=== PATIENT | male | born 1985 | race Caucasian/White ===

== ENCOUNTER 2023-10-31 13:59 | Observation (INO) | payer OTHER, SELFPAY ==
[2023-10-31 13:59] VITALS: BP 151/90; PULSE 95; RESP 19; TEMP 36.8; O2SAT 98; BMI 22.8
--- NOTE | 2023-10-31 14:19 | PC.NURSE ---
Dr. Parra at BS for pt eval
--- NOTE | 2023-10-31 14:26 | CT_ITS ---
FINAL REPORT TECHNIQUE: After the administration of oral and intravenous contrast, axial images were obtained through the abdomen and pelvis by computed tomography. The study was performed with techniques to keep radiation dose as low as reasonably achievable, (ALARA). Individual dose reduction techniques using automated exposure control or adjustment of mA and/or kV according to the patient's size were employed. CLINICAL HISTORY: Suprapubic pain, guarding FINDINGS: Abdomen: The lung bases are clear. There is mild fatty infiltration of the liver. The gallbladder is present. The spleen, pancreas, adrenals and kidneys appear unremarkable. The aorta is normal in caliber. There is no free fluid or adenopathy. Pelvis: There is extensive inflammatory reaction surrounding the proximal sigmoid colon with inflammatory reaction and a small amount of fluid. There may be a tiny amount of extraluminal air. Findings are best seen on images 111-115 of series 3 and are probably related to acute diverticulitis. No definite abscess is seen. The appendix is unremarkable. The urinary bladder is unremarkable. There is no free fluid or adenopathy. IMPRESSION: Acute diverticulitis. Reviewed, Interpreted and Dictated by Abner Larson MD Transcribed by Judy Vazquez Authenticated and [facility]
--- NOTE | 2023-10-31 14:27 | ED_ITS ---
Discharge Plan Disposition Patient Disposition: Admitted Chief Complaint: Abdominal Pain Clinical Impressions Clinical Impression: Abdominal pain, Diverticulitis of sigmoid colon Discharge ED Provider: Piyush Boothe General Adult HPI <Messi Parra MD - Last Filed: 10/31/23 15:45> General Chief complaint: Abdominal Pain Stated complaint: lower abdomen pain Time Seen by Provider: 10/31/23 14:17 Mode of Arrival: Ambulatory Source of Information: Patient Limitations: No Limitations Description of Symptoms (Recalled from ER Triage Doc. by RN): pt presents to ED with c/o lower abdominal pain. pt reports pain located all over lower abdomen with radiation into his back. pain ongoing for the past week, pt states pain become worse on friday. History of Present Illness HPI narrative: Renny Ragland is a 38M with no significant past medical history presenting to the emergency department for complaints of 1.5 weeks of suprapubic, sharp abdominal pain that intermittently radiates to both of his testicles. He states that he works out in the heat a lot and has been trying to stay hydrated but the pain has persisted. He reports no burning with urination but states that it is difficult to oftentimes start a urine stream and sometimes difficult to initiate a bowel movement due to the suprapubic pain. He reports that he has daily regular bowel movements without blood or diarrhea. He denies any alcohol use. He denies any scrotal swelling or current testicular pain. He reports he had a fever earlier last week with a max temp of 100.4 but it resolved on its own. He denies any trauma. He states that on Friday of this past week, he was stretching while at a restaurant and felt the pain in the middle of his back. He states that the pain in his abdomen has gotten worse since then. He denies any previous abdominal surgeries. Related Data Allergies Allergy/AdvReac Type Severity Reaction Status Date / Time No Known Allergies Allergy Verified 10/31/23 17:31 PFSH <Messi Parra MD - Last Filed: 10/31/23 15:45> [facility] Disclaimer: The information contained in this section may have been updated after the patient was seen, as this information can be updated by other users. Social History Smoking Status: Current every day smoker alcohol intake: never current occupational status: employed Travel in the last 8 weeks: None <Messi Parra MD - Last Filed: 10/31/23 15:45> ROS Obtained: Yes Systems reviewed as appropriate & no additional complaints except as documented Physical Exam <Messi Parra MD - Last Filed: 10/31/23 15:45> General General appearance: alert, in no apparent distress and obese Head Head exam: atraumatic Eye Eye exam: Present normal appearance ENT ENT exam: Present normal external ear exam Neck Neck exam: Present full ROM Chest Chest inspection: Present symmetric chest wall rise Respiratory Respiratory exam: Present normal lung sounds bilaterally; Absent respiratory distress Cardiovascular Cardiovascular exam: Present regular rate and normal rhythm Abdominal Exam Abdominal exam: Present soft, tenderness (suprapubic, LLQ, LUQ) and guarding (suprapubic, LLQ); Absent distention, rebound, rigidity or Menchaca's sign Abdominal tenderness: Present LUQ, LLQ and suprapubic exam: Present normal inspection, deferred and normal testicular lie; Absent testicular tenderness, urethral discharge or scrotal swelling Extremities Exam Extremities exam: Present normal inspection Back Exam Back exam: Present normal inspection Neurological Exam Neurological exam: Present alert and oriented X3 Psychiatric Psychiatric exam: Present normal affect Skin Skin exam: Present warm and dry Medical Decision Making <Messi Parra MD - Last Filed: 10/31/23 15:45> Medical Records Medical records reviewed: Yes I reviewed the patient's medical records. [place] Inquiry Pt receiving controlled substance: No Vital Signs: 10/31/23 13:59 10/31/23 15:00 10/31/23 16:00 Temperature 98.2 F Temperature Source Oral Pulse Rate 69 66 Pulse Rate [Left Radial] 95 H Respiratory Rate 19 Blood Pressure 139/89 133/90 Blood Pressure [Right Arm] 151/90 H Blood Pressure Mean [Right Arm] 110 02 Sat by Pulse Oximetry 98 98 96 Oxygen Delivery Method Room Air Room Air Room Air Lab Data Lab Results 10/31/23 13:44: WBC 8.9, RBC 5.36, Hgb 15.9, Hct 48.7, MCV 90.8, MCH 29.6, MCHC 32.6, RDW 13.6, Plt Count 250, MPV 7.6, Neut % (Auto) 69.1, Lymph % (Auto) 20.2, [place] % (Auto) 8.7, Eos % (Auto) 1.2, Baso % (Auto) 0.7, Neut # (Auto) 6.2, Lymph # (Auto) 1.8, [place] # (Auto) 0.8, Eos # (Auto) 0.1, Baso # (Auto) 0.1, Sodium 141, Potassium 3.9, Chloride 107, Carbon Dioxide 27, Anion Gap 10.9, BUN 8 L, Creatinine 0.80, Estimated Creat Clear 142, Estimated GFR 108, Est GFR ( Amer) 130, Glucose 94, Calcium 9.4, Total Bilirubin 0.6, AST 33, ALT 36, Alkaline Phosphatase 86, Total Protein 7.9, Albumin 4.1, Globulin 3.8 H, Albumin/Globulin Ratio 1.1, Lipase 43 10/31/23 14:05: Urine Color Yellow, Urine Appearance Clear, Urine pH 7.0, Ur Specific [place] 1.015, Urine Protein Negative, Urine Glucose (UA) Negative, Urine Ketones Negative, Urine Blood Negative, Urine Nitrate Negative, Urine Bilirubin Negative, Urine Urobilinogen 1.0, Ur Leukocyte Esterase Negative, Urine RBC Occasional, Urine WBC Occasional, Urine Bacteria 1+, Urine Mucus 3+ 10/31/23 13:44 10/31/23 13:44 Orders (Tests/Meds): ED MEDICATIONS Generic Name Dose Route Start Last Admin Trade Name Freq PRN Reason Stop Dose Admin Hydromorphone HCl 1 mg 10/31/23 17:32 Hydromorphone 2mg/Ml Syringe IV 11/30/23 17:31 Q4HP PRN Severe Pain (7-10) Ampicillin Sodium/Sulbactam 100 mls @ 200 mls/hr 10/31/23 17:29 Sodium 3 gm/ Sodium Chloride IV 10/31/23 17:30 ONCE ONE Metronidazole 500 mg in 100 mls @ 100 mls/hr 10/31/23 17:29 Flagyl 500mg/100ml Ivpb IV 10/31/23 18:28 ONCE ONE Lactated Ringer's 1,000 mls @ 100 mls/hr 10/31/23 17:45 Lactated Ringer's 1000 Ml Bag IV 11/30/23 17:[address] Metronidazole 500 mg in 100 mls @ 100 mls/hr 11/01/23 01:30 Flagyl 500mg/100ml Ivpb IV 11/11/23 01:[address] Ampicillin Sodium/Sulbactam 100 mls @ 200 mls/hr 10/31/23 23:45 Sodium 3 gm/ Sodium Chloride IV 11/10/23 23:[address] Ondansetron HCl 4 mg 10/31/23 17:32 Ondansetron 4mg/2ml Vial IV 11/30/23 17:31 Q8HP PRN Nausea Sodium Chloride 10 ml 10/31/23 14:48 10/31/23 14:49 Sodium Chloride 0.9% 10ml Syr (Rad Only) IV 11/30/23 14:47 10 ml NEEDED PRN Administration Maintain IV Site Discontinued Medications Generic Name Dose Route Start Last Admin Trade Name Freq PRN Reason Stop Dose Admin Iopamidol 75 ml 10/31/23 14:48 10/31/23 14:49 Iopamidol-370 (76%);100ml Bottle IV 10/31/23 14:49 75 ml ONCE ONE Administration ORDERS Category Date Time Status CT abdomen pelvis w con Stat Cat Scan 10/31/23 14:26 Completed Surgery Consult (on-call) [Consult to On-Call Gen'l Cons 10/31/23 17:32 Ordered Surgeon] [CONS] Routine CBC w/Auto Diff [Complete Blood Count Auto Diff] Stat Lab 10/31/23 13:44 Completed CMP [Comprehensive Metabolic Panel] Stat Lab 10/31/23 13:44 Completed Complete Blood Count Auto Diff AMLAB Lab 11/01/23 06:00 Ordered Comprehensive Metabolic Panel AMLAB Lab 11/01/23 06:00 Ordered Lipase Stat Lab 10/31/23 13:44 Completed Magnesium AMLAB Lab 11/01/23 06:00 Ordered Urinalysis and Microscopic Stat Lab 10/31/23 14:05 Completed Blood Culture Stat Micro 10/31/23 17:31 Ordered Medical Decision Narrative: Bernardino Ragland is a 38M with no significant past medical history who presents to the emergency department for complaints of 1.5 weeks of suprapubic abdominal pain that radiates to his testicles intermittently. He denies any dysuria but reports difficulty starting urinary stream at times due to the suprapubic pain. He reports regular bowel movements without constipation, melena or hematochezia. Patient's exam demonstrated suprapubic tenderness, left lower quadrant tenderness, left upper quadrant tenderness with guarding in these areas. Testicular exam revealed normal-appearing testicles bilaterally, no tenderness to the testicles, no scrotal swelling. Differential diagnosis includes: Appendicitis, diverticulitis, UTI, constipation, epididymitis, orchitis, small bowel obstruction, among others Workup in the emergency department included: CBC, CMP, lipase, urinalysis, CT abdomen pelvis with IV contrast. Patient was offered pain medication, however he stated that he did not want any at this time. Lab work revealed no leukocytosis, CMP unremarkable and nonactionable, lipase normal at 43, urinalysis without evidence of infection. CT imaging pending at this time. At this time, the patient's care was transferred to the oncoming physician, Dr. Boothe, pending completion of his CT scan. Patient remained hemodynamically stable throughout his entire ED visit and was appropriate for transfer of care. <Piyush Boothe MD - Last Filed: 10/31/23 17:40> Vital Signs: 10/31/23 13:59 10/31/23 15:00 10/31/23 16:00 Temperature 98.2 F Temperature Source Oral Pulse Rate 69 66 Pulse Rate [Left Radial] 95 H Respiratory Rate 19 Blood Pressure 139/89 133/90 Blood Pressure [Right Arm] 151/90 H Blood Pressure Mean [Right Arm] 110 02 Sat by Pulse Oximetry 98 98 96 Oxygen Delivery Method Room Air Room Air Room Air Lab Data Lab Results 10/31/23 13:44: WBC 8.9, RBC 5.36, Hgb 15.9, Hct 48.7, MCV 90.8, MCH 29.6, MCHC 32.6, RDW 13.6, Plt Count 250, MPV 7.6, Neut % (Auto) 69.1, Lymph % (Auto) 20.2, [place] % (Auto) 8.7, Eos % (Auto) 1.2, Baso % (Auto) 0.7, Neut # (Auto) 6.2, Lymph # (Auto) 1.8, [place] # (Auto) 0.8, Eos # (Auto) 0.1, Baso # (Auto) 0.1, Sodium 141, Potassium 3.9, Chloride 107, Carbon Dioxide 27, Anion Gap 10.9, BUN 8 L, Creatinine 0.80, Estimated Creat Clear 142, Estimated GFR 108, Est GFR ( Amer) 130, Glucose 94, Calcium 9.4, Total Bilirubin 0.6, AST 33, ALT 36, Alkaline Phosphatase 86, Total Protein 7.9, Albumin 4.1, Globulin 3.8 H, Albumin/Globulin Ratio 1.1, Lipase 43 10/31/23 14:05: Urine Color Yellow, Urine Appearance Clear, Urine pH 7.0, Ur Specific [place] 1.015, Urine Protein Negative, Urine Glucose (UA) Negative, Urine Ketones Negative, Urine Blood Negative, Urine Nitrate Negative, Urine Bilirubin Negative, Urine Urobilinogen 1.0, Ur Leukocyte Esterase Negative, Urine RBC Occasional, Urine WBC Occasional, Urine Bacteria 1+, Urine Mucus 3+ Orders (Tests/Meds): ED MEDICATIONS Generic Name Dose Route Start Last Admin Trade Name Freq PRN Reason Stop Dose Admin Hydromorphone HCl 1 mg 10/31/23 17:32 Hydromorphone 2mg/Ml Syringe IV 11/30/23 17:31 Q4HP PRN Severe Pain (7-10) Ampicillin Sodium/Sulbactam 100 mls @ 200 mls/hr 10/31/23 17:29 Sodium 3 gm/ Sodium Chloride IV 10/31/23 17:30 ONCE ONE Metronidazole 500 mg in 100 mls @ 100 mls/hr 10/31/23 17:29 Flagyl 500mg/100ml Ivpb IV 10/31/23 18:28 ONCE ONE Lactated Ringer's 1,000 mls @ 100 mls/hr 10/31/23 17:45 Lactated Ringer's 1000 Ml Bag IV 11/30/23 17:[address] Metronidazole 500 mg in 100 mls @ 100 mls/hr 11/01/23 01:30 Flagyl 500mg/100ml Ivpb IV 11/11/23 01:[address] Ampicillin Sodium/Sulbactam 100 mls @ 200 mls/hr 10/31/23 23:45 Sodium 3 gm/ Sodium Chloride IV 11/10/23 23:[address] Ondansetron HCl 4 mg 10/31/23 17:32 Ondansetron 4mg/2ml Vial IV 11/30/23 17:31 Q8HP PRN Nausea Sodium Chloride 10 ml 10/31/23 14:48 10/31/23 14:49 Sodium Chloride 0.9% 10ml Syr (Rad Only) IV 11/30/23 14:47 10 ml NEEDED PRN Administration Maintain IV Site Discontinued Medications Generic Name Dose Route Start Last Admin Trade Name David PRN Reason Stop Dose Admin Iopamidol 75 ml 10/31/23 14:48 10/31/23 14:49 Iopamidol-370 (76%);100ml Bottle IV 10/31/23 14:49 75 ml ONCE ONE Administration ORDERS Category Date Time Status CT abdomen pelvis w con Stat Cat Scan 10/31/23 14:26 Completed Surgery Consult (on-call) [Consult to On-Call Gen'l Cons 10/31/23 17:32 Ordered Surgeon] [CONS] Routine CBC w/Auto Diff [Complete Blood Count Auto Diff] Stat Lab 10/31/23 13:44 Completed CMP [Comprehensive Metabolic Panel] Stat Lab 10/31/23 13:44 Completed Complete Blood Count Auto Diff AMLAB Lab 11/01/23 06:00 Ordered Comprehensive Metabolic Panel AMLAB Lab 11/01/23 06:00 Ordered Lipase Stat Lab 10/31/23 13:44 Completed Magnesium AMLAB Lab 11/01/23 06:00 Ordered Urinalysis and Microscopic Stat Lab 10/31/23 14:05 Completed Blood Culture Stat Micro 10/31/23 17:31 Ordered Medical Decision Narrative: Bernardino Ragland is a 38M with no significant past medical history who presents to the emergency department for complaints of 1.5 weeks of suprapubic abdominal pain that radiates to his testicles intermittently. He denies any dysuria but reports difficulty starting urinary stream at times due to the suprapubic pain. He reports regular bowel movements without constipation, melena or hematochezia. Patient's exam demonstrated suprapubic tenderness, left lower quadrant tenderness, left upper quadrant tenderness with guarding in these areas. Testicular exam revealed normal-appearing testicles bilaterally, no tenderness to the testicles, no scrotal swelling. Differential diagnosis includes: Appendicitis, diverticulitis, UTI, constipation, epididymitis, orchitis, small bowel obstruction, among others Workup in the emergency department included: CBC, CMP, lipase, urinalysis, CT abdomen pelvis with IV contrast. Patient was offered pain medication, however he stated that he did not want any at this time. Lab work revealed no leukocytosis, CMP unremarkable and nonactionable, lipase normal at 43, urinalysis without evidence of infection. CT imaging pending at this time. At this time, the patient's care was transferred to the oncoming physician, Dr. Boothe, pending completion of his CT scan. Patient remained hemodynamically stable throughout his entire ED visit and was appropriate for transfer of care. Shyann: I assumed primary responsibility for this patient after signout from previous physician. On my independent evaluation of patient, he still guarding, any significant abdominal pain. No overlying skin changes. Does appear peritonitic. It is localized peritonitis in left lower quadrant. Independent to rotation of workup demonstrates nonactionable CBC or chemistry. Sodium normal. Independent rotation of imaging demonstrates what appears to be complicated sigmoid diverticulitis without obvious perforation. Radiology read as questionable extraluminal gas, I disagree. I called the surgeon on-call, Dr. Downing. He recommended admission with antibiotics, serial abdominal exams and nonsurgical management at this time. I feel this is appropriate. I contacted hospitalist and case was discussed at length, agreeable to admission. Because patient high risk for clinical decompensation, deemed appropriate for inpatient admission. Results were relayed to patient who voiced understanding and patient was agreeable to inpatient admission and management. Patient was admitted to the hospital for further definitive management. Critical Care <Messi Parra MD - Last Filed: 10/31/23 15:45> Critical Care Time Critical Care Time: No <Piyush Boothe MD - Last Filed: 10/31/23 17:40> Critical Care Time Critical Care Time: Yes (gi) Attestation: On 10/31/23, the high probability of a clinically significant, sudden or life threatening deterioration of the following system(s) required my full and direct attention, intervention and personal management. The time I documented below is in addition to time spent performing reported procedures but includes the following listed in this critical care notation. Total Time Total Critical Care Time: 35
[2023-10-31 14:31] LABS: Microscopic, Urine URINE MICROSCOPIC (MICROSCOPIC)
[2023-10-31 14:34] LABS: Appearance,Urine CLEAR (Clear); Bilirubin,Urine Negative (Negative); Blood, Urine Negative (Negative); Color,Urine YELLOW (Yellow); Glucose,Urine (UA) Negative (Negative); Ketones,Urine Negative (Negative); Leukocyte Esterase,Urine Negative (Negative); Nitrate,Urine Negative (Negative); Protein,Urine Negative (Negative); Specific Gravity, Urine 1.015 (1.005-1.030)
[2023-10-31 14:38] LABS: Alanine Aminotransferase 36 U/L (12-78); Albumin Level 4.1 g/dl (3.5-5.0); Albumin/Globulin Ratio 1.1 (1.1-1.8); Alkaline Phosphatase 86 U/L (38-126); Anion Gap 10.9 mEq/L (5-15); Aspartate Amino Transferase 33 U/L (17-59); Bilirubin,Total 0.6 mg/dl (0.2-1.3); Blood Urea Nitrogen 8 mg/dl (9-20); Calcium 9.4 mg/dl (8.4-10.2); Carbon Dioxide 27 mmol/L (22.0-30.0); Chloride 107 mmol/L (98-107); Creatinine Clearance Estimated 142 mL/min (50-200); Estimated Glomerular Filt Rate 108 ml/min (>60); GFR (African American) 130 ML/MIN (>60); Globulin 3.8 g/dL (1.3-3.2); Glucose 94 mg/dl (74-100); Lipase 43 U/L (23-300); Potassium 3.9 mmoL/L (3.5-5.1); Sodium 141 mmol/L (136-145); Total Protein,Serum 7.9 g/dl (6.3-8.2)
[2023-10-31 14:41] LABS: Basophils # 0.1 K/mm3 (0-0.2); Basophils % 0.7 % (0.1-2.0); Eosinophils # 0.1 K/mm3 (0.0-0.4); Eosinophils % 1.2 % (0.1-12.0); Hematocrit 48.7 % (42.0-52.0); Hemoglobin 15.9 g/dL (14.1-18.0); Lymphocytes # 1.8 K/mm3 (0.7-4.5); Lymphocytes % 20.2 % (10-50); Mean Corpuscular HGB Conc 32.6 g/dL (31.8-35.4); Mean Corpuscular Hemoglobin 29.6 pg (27.0-31.2); Mean Corpuscular Volume 90.8 fl (80-94); Mean Platelet Volume 7.6 fl (7.4-10.4); Monocytes # 0.8 K/mm3 (0.1-1.0); Monocytes % 8.7 % (1.7-9.3); Neutrophils # 6.2 K/mm3 (1.8-7.8); Neutrophils % 69.1 % (37.0-80.0); Platelet Count 250 K/mm3 (142-424); Red Blood Count 5.36 M/mm3 (4.60-6.20); Red Cell Distribution Width 13.6 % (11.5-17.5); White Blood Count 8.9 K/mm3 (4.8-10.8)
--- NOTE | 2023-10-31 14:44 | PC.NURSE ---
Pt ambulatory to RAD
[2023-10-31] MEDS: IOPAMIDOL-370 (76%);100ML BOTTLE 75 ML IV (14:49)
[2023-10-31] MEDS: SODIUM CHLORIDE 0.9% 10ML SYR (RAD ONLY) 10 ML IV (14:49)
[2023-10-31 14:51] LABS: Bacteria,Urine 1+ /lpf; Mucus,Urine 3+ /lpf; RBC,Urine Occasional #/hpf (0-3); WBC,Urine Occasional #/hpf (0-3)
[2023-10-31 15:00] VITALS: BP 139/89; PULSE 69; O2SAT 98
[2023-10-31 16:00] VITALS: BP 133/90; PULSE 66; O2SAT 96
--- NOTE | 2023-10-31 17:35 | EXP.HP ---
History of Present Illness *Admission Date: 10/31/23 *Reason for visit:: abdominal pain *History of present illness: Mr. Ragland is a 38-year-old male with no significant past medical history. On no home medications. Presented to the ER with 1 weeks of abdominal pain, fecal urgency, urinary urgency. Reports that he had a fever to 100.4 earlier this week starting on Friday into Friday. Denies nausea. States that when he would eat however he would have to go straight to the bathroom and it was rabbit pellets. Denies any blood in his stool. States he was also having mucus discharge. Normal bowel movements are Emery stool scale 4-6 2-3 times a day. Has not had anything to eat for the past 24 hours. On evaluation in the ER, found to have normal white count 8.9. CT of abdomen remarkable for suspected perforated sigmoid diverticulitis however with significant stranding around colon. Surgery was consulted, recommended admission with antibiotics. Medicine consulted for admission and further management. On arrival to the floor, patient's is with him at bedside. Appears relatively comfortable in bed. Stable on room air. Alert and oriented x 4. [facility] Disclaimer: The information contained in this section may have been updated after the patient was seen, as this information can be updated by other users. Social History (Updated 10/31/23 @ 18:15 by Giselle Gan RN) Smoking Status: Current every day smoker alcohol intake: never current occupational status: employed Travel in the last 8 weeks: None Review of Systems Review of Systems Review of systems (narrative): 14 point review of systems performed, pertinent positives and negatives as per HPI Meds Home Medications and Allergies Home Medications ?Medication ?Instructions ?Recorded ?Confirmed ?Type multivitamin 1 cap PO DAILY 10/31/23 10/31/23 History New Prescriptions to Start Prescriptions: Allergies Allergy/AdvReac Type Severity Reaction Status Date / Time No Known Allergies Allergy Verified 10/31/23 17:31 Exam Data for Last 24 hours Vital signs and Labs for Last 24 Hours: Temp Pulse Resp BP Pulse Ox O2 Del Method 98.2 F 66 19 133/90 96 Room Air 10/31/23 13:59 10/31/23 16:00 10/31/23 13:59 10/31/23 16:00 10/31/23 16:00 10/31/23 16:00 Laboratory Results - last 24 hr 10/31/23 13:44: WBC 8.9, RBC 5.36, Hgb 15.9, Hct 48.7, MCV 90.8, MCH 29.6, MCHC 32.6, RDW 13.6, Plt Count 250, MPV 7.6, Neut % (Auto) 69.1, Lymph % (Auto) 20.2, [place] % (Auto) 8.7, Eos % (Auto) 1.2, Baso % (Auto) 0.7, Neut # (Auto) 6.2, Lymph # (Auto) 1.8, [place] # (Auto) 0.8, Eos # (Auto) 0.1, Baso # (Auto) 0.1, Sodium 141, Potassium 3.9, Chloride 107, Carbon Dioxide 27, Anion Gap 10.9, BUN 8 L, Creatinine 0.80, Estimated Creat Clear 142, Estimated GFR 108, Est GFR ( Amer) 130, Glucose 94, Calcium 9.4, Total Bilirubin 0.6, AST 33, ALT 36, Alkaline Phosphatase 86, Total Protein 7.9, Albumin 4.1, Globulin 3.8 H, Albumin/Globulin Ratio 1.1, Lipase 43 10/31/23 14:05: Urine Color Yellow, Urine Appearance Clear, Urine pH 7.0, Ur Specific [place] 1.015, Urine Protein Negative, Urine Glucose (UA) Negative, Urine Ketones Negative, Urine Blood Negative, Urine Nitrate Negative, Urine Bilirubin Negative, Urine Urobilinogen 1.0, Ur Leukocyte Esterase Negative, Urine RBC Occasional, Urine WBC Occasional, Urine Bacteria 1+, Urine Mucus 3+ I & O for Last 24 hours: Intake & Output 10/28/23 10/29/23 10/30/23 10/31/23 23:59 23:59 23:59 23:59 Weight 80.739 kg Constitutional Constitutional: mild distress, average body habitus and cooperative *Routine HEENT Exam Head: Present normocephalic Eye: Present EOMI and PERRL ENT: Present mucous membranes moist *Routine Neck Exam Neck: Present supple; Absent lymphadenopathy *Routine Respiratory Exam Respiratory: Present CTA bilaterally; Absent rhonchi, wheezes or crackles *Routine Cardiovascular Exam Cardiovascular: Present RRR *Routine Abdominal Exam Abdominal: Present soft, normoactive bowel sounds and tenderness (Significant pain left lower quadrant); Absent distended or rebound *Routine Rectal Exam Rectal:: deferred *Routine Genitalia Exam Genitalia:: deferred *Routine Extremities Exam Extremities: Absent cyanosis, clubbing or edema *Routine Skin Exam Skin: Present warm; Absent rash *Routine Neurological Exam Neurological: Present alert, oriented X3 and moving all extremities; Absent altered mental status Assessment and Plan *Assessment and plan (1) Diverticulitis of sigmoid colon: Status: Acute Category: Medical Code(s): K57.32 - Diverticulitis of large intestine without perforation or abscess without bleeding (2) Perforation of sigmoid colon due to diverticulitis: Status: Acute Category: Medical Code(s): K57.20 - Diverticulitis of large intestine with perforation and abscess without bleeding (3) Abdominal pain: Status: Acute Category: Medical Code(s): R10.9 - Unspecified abdominal pain (4) Class II obesity: Status: Acute Category: Medical Code(s): E66.9 - Obesity, unspecified Plan 38-year-old male who presents with a week of abdominal pain. Found to have suspected perforated sigmoid diverticulitis. Discussed case with ER, request admission for IV antibiotics and surgical evaluation. I agreed to admit for further management. Problems addressed as follows: Sigmoid colon diverticulitis with suspected perforation -Per my review of CT, significant stranding around sigmoid colon with air bubbles suspected to be outside of the lumen. - White count surprisingly normal 8.9, hemoglobin 15.9. Kidney function electrolytes normal with BUN 8, creatinine 0.8. -Repeat CBC, CMP, magnesium ordered for the morning. Will obtain CRP as well. -Initiate on Unasyn 3 g every 6 hours and Flagyl 500 mg every 8 hours. -Surgery consulted, recommend antibiotics to cooldown infection. Will evaluate for intervention tomorrow if symptoms worsen. -Bowel rest, n.p.o. -Dilaudid 1 mg as needed every 4 hours for severe breakthrough pain, oxycodone 5 mg as needed every 6 hours for moderate to severe pain. Monitor for toxicity -Zofran as needed 4 mg IV every 8 hours for nausea or vomiting Obesity complicates all aspects of his care Full code Holding anticoagulation in anticipation of possible surgery N.p.o., maintenance fluids at 100 cc an hour of LR
[2023-10-31] MEDS: METRONIDAZ/SOD CHL 500 MG/100 ML PIGGYBACK 100 MG IV (17:44)
--- NOTE | 2023-10-31 17:46 | PC.NURSE ---
report called to sharda
[2023-10-31 17:51] VITALS: BP 138/88; PULSE 68; RESP 16; TEMP 36.8; O2SAT 97
[2023-10-31 18:00] VITALS: BP 146/84; PULSE 58; RESP 18; TEMP 37; O2SAT 100
[2023-10-31 18:01] VITALS: BMI 35.5
[2023-10-31] MEDS: AMPICILLIN/SULBACTAM 3 GM in 0.9 % SODIUM CHLORIDE 100 ML IV ×2 (18:18→22:48)
[2023-10-31] MEDS: LACTATED RINGERS 1000ML 1,000 ML 100 ML IV (18:19)
[2023-10-31 19:36] VITALS: BP 132/84; PULSE 68; RESP 17; TEMP 36.4; O2SAT 99
[2023-10-31] MEDS: OXYCODONE 5MG W/APAP 325MG TABLET 1 EACH PO (20:39)
[2023-11-01] MEDS: METRONIDAZ/SOD CHL 500 MG/100 ML PIGGYBACK 100 MG IV ×2 (00:58→08:57)
[2023-11-01 04:00] VITALS: BP 131/86; PULSE 70; RESP 16; TEMP 36.8; O2SAT 99; BMI 35.5
[2023-11-01] MEDS: LACTATED RINGERS 1000ML 1,000 ML 100 ML IV (05:21)
[2023-11-01] MEDS: AMPICILLIN/SULBACTAM 3 GM in 0.9 % SODIUM CHLORIDE 100 ML IV (05:40)
[2023-11-01 06:47] LABS: Albumin Level 3.7 g/dl (3.5-5.0); Chloride 108 mmol/L (98-107); Sodium 138 mmol/L (136-145)
--- NOTE | 2023-11-01 06:47 | PC.NURSE ---
Pt is A&OX4 and has tolerated room air. Lungs sounds clear and bowel sounds active in all quadrants. Pt complained of abdominal pain once this shift and was treated per MAR. He has ambulated self to the bathroom multiple times this shift. He has had a couple of small loose BM this shift. He has not slept much this shift. No complaints at this time, call light within reach.
[2023-11-01 06:50] LABS: Alanine Aminotransferase 28 U/L (12-78); Albumin/Globulin Ratio 1.2 (1.1-1.8); Alkaline Phosphatase 77 U/L (38-126); Aspartate Amino Transferase 27 U/L (17-59); Bilirubin,Total 0.8 mg/dl (0.2-1.3); Blood Urea Nitrogen 10 mg/dl (9-20); Carbon Dioxide 25 mmol/L (22.0-30.0); Creatinine Clearance Estimated 220 mL/min (50-200); Estimated Glomerular Filt Rate 108 ml/min (>60); GFR (African American) 130 ML/MIN (>60); Total Protein,Serum 6.7 g/dl (6.3-8.2)
[2023-11-01 06:51] LABS: Calcium 8.7 mg/dl (8.4-10.2); Glucose 84 mg/dl (74-100)
[2023-11-01 06:52] LABS: Basophils # 0.1 K/mm3 (0-0.2); Basophils % 0.7 % (0.1-2.0); Eosinophils # 0.2 K/mm3 (0.0-0.4); Eosinophils % 1.7 % (0.1-12.0); Hematocrit 45.1 % (42.0-52.0); Hemoglobin 14.4 g/dL (14.1-18.0); Lymphocytes # 1.9 K/mm3 (0.7-4.5); Lymphocytes % 21.3 % (10-50); Mean Corpuscular Hemoglobin 29.1 pg (27.0-31.2); Mean Platelet Volume 7.5 fl (7.4-10.4); Monocytes # 0.7 K/mm3 (0.1-1.0); Monocytes % 7.9 % (1.7-9.3); Neutrophils % 68.5 % (37.0-80.0); Platelet Count 243 K/mm3 (142-424); Red Blood Count 4.95 M/mm3 (4.60-6.20); Red Cell Distribution Width 13.7 % (11.5-17.5); White Blood Count 8.8 K/mm3 (4.8-10.8)
[2023-11-01 06:56] LABS: C-Reactive Protein 49.4 mg/L (0-4)
[2023-11-01 07:51] VITALS: BP 135/76; PULSE 59; RESP 20; TEMP 36.7; O2SAT 98
--- NOTE | 2023-11-01 08:44 | EXP.SURG.CON ---
History of Present Illness *Admission Date: 10/31/23 *Reason for visit:: Diverticulitis *History of present illness: Patient is a 38-year-old healthy male with no known significant past medical history. He presented to the emergency department with a slightly greater than 1 week history of abdominal pain with fevers. He has had postprandial fecal urgency for years. Evaluation in the emergency department revealed a normal white blood cell count. CT scan of the abdomen and pelvis was performed which revealed findings consistent with diverticulitis. He was admitted for inpatient management and surgical consultation. No known prior history of diverticulitis. This morning he feels better. He has never had previous colonoscopy. His father had colon cancer diagnosed initially when he was in his 50s and then recurred as stage IV several years later. . [facility] Disclaimer: The information contained in this section may have been updated after the patient was seen, as this information can be updated by other users. Social History Smoking Status: Current every day smoker alcohol intake: never current occupational status: employed Travel in the last 8 weeks: None Meds Home Medications and Allergies Home Medications ?Medication ?Instructions ?Recorded ?Confirmed ?Type multivitamin 1 tab PO DAILY 11/01/23 11/01/23 History New Prescriptions to Start Prescriptions: Allergies Allergy/AdvReac Type Severity Reaction Status Date / Time No Known Allergies Allergy Verified 10/31/23 17:31 Exam (Inpt) Vital signs and Labs for Last 24 Hours: Temp Pulse Resp BP Pulse Ox O2 Del Method 98.1 F 59 L 20 135/76 98 Room Air 11/01/23 07:51 11/01/23 07:51 11/01/23 07:51 11/01/23 07:51 11/01/23 07:51 11/01/23 07:51 Laboratory Results - last 24 hr 10/31/23 13:44: WBC 8.9, RBC 5.36, Hgb 15.9, Hct 48.7, MCV 90.8, MCH 29.6, MCHC 32.6, RDW 13.6, Plt Count 250, MPV 7.6, Neut % (Auto) 69.1, Lymph % (Auto) 20.2, [place] % (Auto) 8.7, Eos % (Auto) 1.2, Baso % (Auto) 0.7, Neut # (Auto) 6.2, Lymph # (Auto) 1.8, [place] # (Auto) 0.8, Eos # (Auto) 0.1, Baso # (Auto) 0.1, Sodium 141, Potassium 3.9, Chloride 107, Carbon Dioxide 27, Anion Gap 10.9, BUN 8 L, Creatinine 0.80, Estimated Creat Clear 142, Estimated GFR 108, Est GFR ( Amer) 130, Glucose 94, Calcium 9.4, Total Bilirubin 0.6, AST 33, ALT 36, Alkaline Phosphatase 86, Total Protein 7.9, Albumin 4.1, Globulin 3.8 H, Albumin/Globulin Ratio 1.1, Lipase 43 10/31/23 14:05: Urine Color Yellow, Urine Appearance Clear, Urine pH 7.0, Ur Specific [place] 1.015, Urine Protein Negative, Urine Glucose (UA) Negative, Urine Ketones Negative, Urine Blood Negative, Urine Nitrate Negative, Urine Bilirubin Negative, Urine Urobilinogen 1.0, Ur Leukocyte Esterase Negative, Urine RBC Occasional, Urine WBC Occasional, Urine Bacteria 1+, Urine Mucus 3+ 11/01/23 06:23: WBC 8.8, RBC 4.95, Hgb 14.4, Hct 45.1, MCV 91.0, MCH 29.1, MCHC 32.0, RDW 13.7, Plt Count 243, MPV 7.5, Neut % (Auto) 68.5, Lymph % (Auto) 21.3, [place] % (Auto) 7.9, Eos % (Auto) 1.7, Baso % (Auto) 0.7, Neut # (Auto) 6.0, Lymph # (Auto) 1.9, [place] # (Auto) 0.7, Eos # (Auto) 0.2, Baso # (Auto) 0.1, Sodium 138, Potassium 4.0, Chloride 108 H, Carbon Dioxide 25, Anion Gap 9.0, BUN 10, Creatinine 0.80, Estimated Creat Clear 220, Estimated GFR 108, Est GFR ( Amer) 130, Glucose 84, Calcium 8.7, Magnesium 2.0, Total Bilirubin 0.8, AST 27, ALT 28, Alkaline Phosphatase 77, C-Reactive Protein 49.4 H, Total Protein 6.7, Albumin 3.7, Globulin 3.0, Albumin/Globulin Ratio 1.2 I & O for Labs for Last 24 Hours: Intake & Output 10/29/23 10/30/23 10/31/23 11/01/23 11:59 11:59 11:59 11:59 Intake Total 1360 / 1360 Output Total 0 / 0 Balance 1360 / 1360 Weight 276 lb 15.997 oz Constitutional: no acute distress Head: Present normocephalic Cardiac: Present Reg Rate and Rhythm GI: Present soft Comments:: Mild tenderness without guarding in the left lower quadrant. Results Labs 11/01/23 06:23 11/01/23 06:23 Labs: Laboratory Results - last 24 hr 10/31/23 13:44: WBC 8.9, RBC 5.36, Hgb 15.9, Hct 48.7, MCV 90.8, MCH 29.6, MCHC 32.6, RDW 13.6, Plt Count 250, MPV 7.6, Neut % (Auto) 69.1, Lymph % (Auto) 20.2, [place] % (Auto) 8.7, Eos % (Auto) 1.2, Baso % (Auto) 0.7, Neut # (Auto) 6.2, Lymph # (Auto) 1.8, [place] # (Auto) 0.8, Eos # (Auto) 0.1, Baso # (Auto) 0.1, Sodium 141, Potassium 3.9, Chloride 107, Carbon Dioxide 27, Anion Gap 10.9, BUN 8 L, Creatinine 0.80, Estimated Creat Clear 142, Estimated GFR 108, Est GFR ( Amer) 130, Glucose 94, Calcium 9.4, Total Bilirubin 0.6, AST 33, ALT 36, Alkaline Phosphatase 86, Total Protein 7.9, Albumin 4.1, Globulin 3.8 H, Albumin/Globulin Ratio 1.1, Lipase 43 10/31/23 14:05: Urine Color Yellow, Urine Appearance Clear, Urine pH 7.0, Ur Specific [place] 1.015, Urine Protein Negative, Urine Glucose (UA) Negative, Urine Ketones Negative, Urine Blood Negative, Urine Nitrate Negative, Urine Bilirubin Negative, Urine Urobilinogen 1.0, Ur Leukocyte Esterase Negative, Urine RBC Occasional, Urine WBC Occasional, Urine Bacteria 1+, Urine Mucus 3+ 11/01/23 06:23: WBC 8.8, RBC 4.95, Hgb 14.4, Hct 45.1, MCV 91.0, MCH 29.1, MCHC 32.0, RDW 13.7, Plt Count 243, MPV 7.5, Neut % (Auto) 68.5, Lymph % (Auto) 21.3, [place] % (Auto) 7.9, Eos % (Auto) 1.7, Baso % (Auto) 0.7, Neut # (Auto) 6.0, Lymph # (Auto) 1.9, [place] # (Auto) 0.7, Eos # (Auto) 0.2, Baso # (Auto) 0.1, Sodium 138, Potassium 4.0, Chloride 108 H, Carbon Dioxide 25, Anion Gap 9.0, BUN 10, Creatinine 0.80, Estimated Creat Clear 220, Estimated GFR 108, Est GFR ( Amer) 130, Glucose 84, Calcium 8.7, Magnesium 2.0, Total Bilirubin 0.8, AST 27, ALT 28, Alkaline Phosphatase 77, C-Reactive Protein 49.4 H, Total Protein 6.7, Albumin 3.7, Globulin 3.0, Albumin/Globulin Ratio 1.2 Assessment and Plan *Assessment and plan (1) Diverticulitis of sigmoid colon: Status: Acute Category: Medical Code(s): K57.32 - Diverticulitis of large intestine without perforation or abscess without bleeding Plan Patient has moderate diverticulitis which has shown clinical improvement. May be reasonable to advance diet. If tolerates ultimately may be able to discharge on fiber restricted low residue diet and oral antibiotics. Patient will need outpatient colonoscopy.
--- NOTE | 2023-11-01 10:50 | EXP.DC.SUM ---
General Admission date:: 10/31/23 Discharge date: 11/01/23 HPI HPI HPI: Patient is a 38-year-old healthy male with no known significant past medical history. He presented to the emergency department with a slightly greater than 1 week history of abdominal pain with fevers. He has had postprandial fecal urgency for years. Evaluation in the emergency department revealed a normal white blood cell count. CT scan of the abdomen and pelvis was performed which revealed findings consistent with diverticulitis. He was admitted for inpatient management and surgical consultation. No known prior history of diverticulitis. This morning he feels better. He has never had previous colonoscopy. His father had colon cancer diagnosed initially when he was in his 50s and then recurred as stage IV several years later. Hospital Course Hospital Course Hospital Course: 38-year-old male who presents with a week of abdominal pain. Found to have suspected perforated sigmoid diverticulitis. Discussed case with ER, request admission for IV antibiotics and surgical evaluation. I agreed to admit for further management. Patient did well overnight. Seeing improvement in abdominal discomfort after initiation of antibiotics. No fever. Labs remain normal. Surgery evaluated, recommend advancing diet and discharge home if tolerates low fiber diet. Stable discharge home. Problems addressed as follows: Sigmoid colon diverticulitis with suspected perforation -Per my review of CT, significant stranding around sigmoid colon with air bubbles suspected to be outside of the lumen. White count surprisingly normal 8.9, hemoglobin 15.9. Kidney function electrolytes normal with BUN 8, creatinine 0.8. Remained normal during admission. No fever. Started on Unasyn and Flagyl. Surgery evaluated in the morning, given improvement in symptoms and decreased tenderness to abdomen, recommend transitioning to oral antibiotics and advancing diet. If tolerates advance diet, discharge home with close follow-up as an outpatient. Recommend fiber restricted low residue diet. Will need outpatient colonoscopy in the coming weeks. Significant discussion about diet, warning signs and need to return to hospital. Total time spent on discharge 32 minutes in counseling, documentation, chart review, and direct care with patient. Exam Data for Last 24 hours Vital signs and Labs for Last 24 Hours: Temp Pulse Resp BP Pulse Ox O2 Del Method 98.1 F 59 L 20 135/76 98 Room Air 11/01/23 07:51 11/01/23 07:51 11/01/23 07:51 11/01/23 07:51 11/01/23 07:51 11/01/23 09:00 Laboratory Results - last 24 hr 10/31/23 13:44: WBC 8.9, RBC 5.36, Hgb 15.9, Hct 48.7, MCV 90.8, MCH 29.6, MCHC 32.6, RDW 13.6, Plt Count 250, MPV 7.6, Neut % (Auto) 69.1, Lymph % (Auto) 20.2, [place] % (Auto) 8.7, Eos % (Auto) 1.2, Baso % (Auto) 0.7, Neut # (Auto) 6.2, Lymph # (Auto) 1.8, [place] # (Auto) 0.8, Eos # (Auto) 0.1, Baso # (Auto) 0.1, Sodium 141, Potassium 3.9, Chloride 107, Carbon Dioxide 27, Anion Gap 10.9, BUN 8 L, Creatinine 0.80, Estimated Creat Clear 142, Estimated GFR 108, Est GFR ( Amer) 130, Glucose 94, Calcium 9.4, Total Bilirubin 0.6, AST 33, ALT 36, Alkaline Phosphatase 86, Total Protein 7.9, Albumin 4.1, Globulin 3.8 H, Albumin/Globulin Ratio 1.1, Lipase 43 10/31/23 14:05: Urine Color Yellow, Urine Appearance Clear, Urine pH 7.0, Ur Specific [place] 1.015, Urine Protein Negative, Urine Glucose (UA) Negative, Urine Ketones Negative, Urine Blood Negative, Urine Nitrate Negative, Urine Bilirubin Negative, Urine Urobilinogen 1.0, Ur Leukocyte Esterase Negative, Urine RBC Occasional, Urine WBC Occasional, Urine Bacteria 1+, Urine Mucus 3+ 11/01/23 06:23: WBC 8.8, RBC 4.95, Hgb 14.4, Hct 45.1, MCV 91.0, MCH 29.1, MCHC 32.0, RDW 13.7, Plt Count 243, MPV 7.5, Neut % (Auto) 68.5, Lymph % (Auto) 21.3, [place] % (Auto) 7.9, Eos % (Auto) 1.7, Baso % (Auto) 0.7, Neut # (Auto) 6.0, Lymph # (Auto) 1.9, [place] # (Auto) 0.7, Eos # (Auto) 0.2, Baso # (Auto) 0.1, Sodium 138, Potassium 4.0, Chloride 108 H, Carbon Dioxide 25, Anion Gap 9.0, BUN 10, Creatinine 0.80, Estimated Creat Clear 220, Estimated GFR 108, Est GFR ( Amer) 130, Glucose 84, Calcium 8.7, Magnesium 2.0, Total Bilirubin 0.8, AST 27, ALT 28, Alkaline Phosphatase 77, C-Reactive Protein 49.4 H, Total Protein 6.7, Albumin 3.7, Globulin 3.0, Albumin/Globulin Ratio 1.2 I & O for Last 24 hours: Intake & Output 10/29/23 10/30/23 10/31/23 11/01/23 23:59 23:59 23:59 23:59 Intake Total 1360 / 1360 Output Total 0 / 0 0 / 0 Balance 0 / 1000 1360 / 1360 Weight 125.645 kg 125.645 kg Constitutional Constitutional: no acute distress, obese and cooperative *Routine HEENT Exam Head: Present normocephalic Eye: Present EOMI and PERRL ENT: Present mucous membranes moist *Routine Neck Exam Neck: Present supple; Absent lymphadenopathy *Routine Respiratory Exam Respiratory: Present CTA bilaterally *Routine Cardiovascular Exam Cardiovascular: Present RRR *Routine Abdominal Exam Abdominal: Present soft, normoactive bowel sounds and tenderness (Mild left lower quadrant tenderness, improved from yesterday.) *Routine Rectal Exam Patient deferred: visual exam *Routine Exam Patient deferred: penile exam *Routine Extremities Exam Extremities: Absent cyanosis, clubbing or edema *Routine Skin Exam Skin: Present warm; Absent rash *Routine Neurological Exam Neurological: Present alert, oriented X3 and moving all extremities; Absent altered mental status Results Data Completed and Pending Labs on day of discharge: Labs from last 24 hours 11/01/23 10/31/23 10/31/23 06:23 14:05 13:44 WBC 8.8 8.9 RBC 4.95 5.36 Hgb 14.4 15.9 Hct 45.1 48.7 MCV 91.0 90.8 MCH 29.1 29.6 MCHC 32.0 32.6 RDW 13.7 13.6 Plt Count 243 250 MPV 7.5 7.6 Neut % (Auto) 68.5 69.1 Lymph % (Auto) 21.3 20.2 [place] % (Auto) 7.9 8.7 Eos % (Auto) 1.7 1.2 Baso % (Auto) 0.7 0.7 Neut # (Auto) 6.0 6.2 Lymph # (Auto) 1.9 1.8 [place] # (Auto) 0.7 0.8 Eos # (Auto) 0.2 0.1 Baso # (Auto) 0.1 0.1 Sodium 138 141 Potassium 4.0 3.9 Chloride 108 H 107 Carbon Dioxide 25 27 Anion Gap 9.0 10.9 BUN 10 8 L Creatinine 0.80 0.80 Estimated Creat Clear 220 142 Estimated GFR 108 108 Est GFR ( Amer) 130 130 Glucose 84 94 Calcium 8.7 9.4 Magnesium 2.0 Total Bilirubin 0.8 0.6 AST 27 33 ALT 28 36 Alkaline Phosphatase 77 86 C-Reactive Protein 49.4 H Total Protein 6.7 7.9 Albumin 3.7 4.1 Globulin 3.0 3.8 H Albumin/Globulin Ratio 1.2 1.1 Lipase 43 Urine Color Yellow Urine Appearance Clear Urine pH 7.0 Ur Specific [place] 1.015 Urine Protein Negative Urine Glucose (UA) Negative Urine Ketones Negative Urine Blood Negative Urine Nitrate Negative Urine Bilirubin Negative Urine Urobilinogen 1.0 Ur Leukocyte Esterase Negative Urine RBC Occasional Urine WBC Occasional Urine Bacteria 1+ Urine Mucus 3+ DS: Diagnosis Discharge Diagnosis (1) Diverticulitis of sigmoid colon: Status: Acute Code(s): K57.32 - Diverticulitis of large intestine without perforation or abscess without bleeding Meds Home Medications and Allergies Home Medications ?Medication ?Instructions ?Recorded ?Confirmed ?Type amoxicillin 500 mg-potassium 1 tab PO TID 6 days #18 tabs 11/01/23 Rx clavulanate 125 mg tablet (Augmentin) multivitamin 1 tab PO DAILY 11/01/23 11/01/23 History oxycodone-acetaminophen 5 mg-325 1 tab PO Q6HP PRN Moderate Pain 11/01/23 Rx mg tablet (4-6) #5 tabs New Prescriptions to Start Prescriptions: amoxicillin-pot clavulanate [Augmentin] Edgardo Casanova oxycodone-acetaminophen Edgardo Casanova Allergies Allergy/AdvReac Type Severity Reaction Status Date / Time No Known Allergies Allergy Verified 10/31/23 17:31 Discharge Plan Disposition Patient Disposition: Home, Self-Care Condition: Fair Follow up Plan Follow up with: Ruddy Downing MD [Staff Physician] - Enter time for follow up (please call for appointment) Prescriptions/Medication Reconciliation: New oxycodone-acetaminophen 5-325 mg Tablet 1 tab PO Q6HP PRN (Reason: Moderate Pain (4-6)) Qty: 5 0RF amoxicillin-pot clavulanate [Augmentin] 500-125 mg tablet 1 tab PO TID 6 Days Qty: 18 0RF Continued multivitamin Tablet 1 tab PO DAILY Problem Reconciliation Problems Reviewed?: Yes Patient Discharge Instructions ACTIVITY: Continue current activity DIET: continue same diet Patient Instructions: Diverticulitis (Alternative Therapy), Diverticulitis Print Language: Macedonian Providers Primary Care Provider: Provider,Referral Admit Provider: Edgardo Casanova Attending Provider: Edgardo Casanova
== END 2023-11-01 11:59 | disposition home or self-care (01) ==
LOC: ER 15:54 → 2ND 17:40
PROVIDERS: Student in an Organized Health Care Education/Training Program; Admitting Provider Internal Medicine Adolescent Medicine; Emergency Provider Emergency Medicine; Visit Provider Internal Medicine Adolescent Medicine
DX: K57.32 Diverticulitis of large intestine without perforation or abscess without bleeding (principal); R10.30 Lower abdominal pain, unspecified; R15.2 Fecal urgency; R39.15 Urgency of urination; F17.210 Nicotine dependence, cigarettes, uncomplicated; Z80.0 Family history of malignant neoplasm of digestive organs; E66.9 Obesity, unspecified; Z68.35 Body mass index [BMI] 35.0-35.9, adult
CPT/HCPCS: 36415; 74177; 80053; 81001; 83690; 83735; 85025; 86140; 87040; 99291; G0378; J0295; J7120; Q9967

== ENCOUNTER 2023-12-19 11:10 | Day surgery (SDC) | payer OTHER, SELFPAY ==
[2023-12-17 14:22] VITALS: BMI 36.6
[2023-12-19 11:33] VITALS: BP 143/95; PULSE 59; RESP 16; TEMP 36.2; O2SAT 99
--- NOTE | 2023-12-19 11:39 | EXP.ANES.CKL ---
[facility] Disclaimer: The information contained in this section may have been updated after the patient was seen, as this information can be updated by other users. Medical History Diverticulitis Surgical History Hx of shoulder surgery History of removal of cyst Family History Other Cancer Diabetes Heart disease Social History Smoking Status: Current every day smoker alcohol intake: never substance use type: denies use current occupational status: employed Travel in the last 8 weeks: None [facility] Anesthesia Checklist Patient Identification Patient Identification: Arm Band and Verbal (Name & ) Structural Data Admitted From: Home Planned Operative Procedure/s: Colonoscopy Consent for Planned Operative Procedure(s) Verified: Yes Verified Documents: Surgical Consent and History and Physical NPO Status Verified Time NPO: 00:00 Additional verifications Anesthesia Reactions: No Airway Assessment Mallampati Score:: Class III C-Spine Mobility Assessed: Yes TMJ Mobility Assessed: Yes Dentition: Good Dentition Neurological Assessment Level of Consciousness: Awake Hx Seizures: No Numbness or tingling in extremities: No Anesthesia Plan Anesthesia Risk discussed: Yes ASA Class: II Anesthesia Type: MAC
[2023-12-19] MEDS: LACTATED RINGERS 1000ML 1,000 ML 100 ML IV (11:42)
--- NOTE | 2023-12-19 11:48 | EXP.GEN.HP ---
HPI HPI HPI: Patient presents for colonoscopy. He had a brief inpatient hospitalization for diverticulitis 10/30-11/01/23. He presented to the emergency department with a slightly greater than 1 week history of abdominal pain with fevers. He has had postprandial fecal urgency for years. Evaluation in the emergency department revealed a normal white blood cell count. CT scan of the abdomen and pelvis was performed which revealed findings consistent with diverticulitis. He was admitted for inpatient management and surgical consultation. No known prior history of diverticulitis. He has never had previous colonoscopy. His father had colon cancer diagnosed initially when he was in his 50s and then recurred as stage IV several years later. He was discharged home on low residue diet and oral Augmentin. He did have some ongoing pain for a couple of days after discharge and this has now resolved. Patient does describe postprandial fecal urgency occasionally. . [facility] Disclaimer: The information contained in this section may have been updated after the patient was seen, as this information can be updated by other users. Medical History Diverticulitis Surgical History Hx of shoulder surgery History of removal of cyst Family History Other Cancer Diabetes Heart disease Social History (Updated 12/19/23 @ 11:39 by Jody Reed CRNA) Smoking Status: Current every day smoker alcohol intake: never substance use type: denies use current occupational status: employed Travel in the last 8 weeks: None Other Medical History Have you received the Flu Vaccine for this season: No Have you received the Pneumonia Vaccine: No Meds Home Medications and Allergies Home Medications ?Medication ?Instructions ?Recorded ?Confirmed ?Type multivitamin 1 tab PO DAILY 11/01/23 12/19/23 History fexofenadine 30 mg tablet 120 mg PO DAILY 12/17/23 12/19/23 History omeprazole 20 mg capsule,delayed 20 mg PO DAILY 12/17/23 12/19/23 History release New Prescriptions to Start Prescriptions: Allergies Allergy/AdvReac Type Severity Reaction Status Date / Time No Known Allergies Allergy Verified 12/19/23 11:33 Exam Data for Last 24 hours Vital signs and Labs for Last 24 Hours: Temp Pulse Resp BP Pulse Ox O2 Del Method 97.1 F L 59 L 16 143/95 H 99 Room Air 12/19/23 11:33 12/19/23 11:33 12/19/23 11:33 12/19/23 11:33 12/19/23 11:33 12/19/23 11:33 I & O for Last 24 hours: Intake & Output 12/16/23 12/17/23 12/18/23 12/19/23 11:59 11:59 11:59 11:59 Weight 278 lb Constitutional Constitutional: no acute distress *Routine HEENT Exam Head: Present normocephalic Eye: Present EOMI and PERRL ENT: Present mucous membranes moist *Routine Neck Exam Neck: Present supple; Absent lymphadenopathy *Routine Respiratory Exam Respiratory: Present CTA bilaterally *Routine Cardiovascular Exam Cardiovascular: Present RRR *Routine Abdominal Exam Abdominal: Present soft and normoactive bowel sounds; Absent tenderness *Routine Rectal Exam Rectal:: deferred *Routine Genitalia Exam Genitalia:: deferred *Routine Extremities Exam Extremities: Absent cyanosis, clubbing or edema *Routine Skin Exam Skin: Present warm; Absent rash *Routine Neurological Exam Neurological: Present alert and oriented X3 Assessment and Plan *Assessment and plan (1) Abdominal pain: Status: Acute Category: Medical Code(s): R10.9 - Unspecified abdominal pain (2) Diverticulitis of sigmoid colon: Status: Acute Category: Medical Code(s): K57.32 - Diverticulitis of large intestine without perforation or abscess without bleeding Plan Plan for colonoscopy due to family history of colon cancer and presumed diverticulitis.
[2023-12-19 11:57] VITALS: O2SAT 100
--- NOTE | 2023-12-19 12:31 | P.PCN_ITS ---
Procedure: Date: 12/19/23 Patient Date of :: 1985 Procedure Performed:: Total colonoscopy to terminal ileum with multiple biopsies and polypectomy Indications:: Patient presents for colonoscopy. He had a brief inpatient hospitalization for diverticulitis 10/30-11/01/23. He presented to the emergency department with a slightly greater than 1 week history of abdominal pain with fevers. He has had postprandial fecal urgency for years. Evaluation in the emergency department revealed a normal white blood cell count. CT scan of the abdomen and pelvis was performed which revealed findings consistent with diverticulitis. He was admitted for inpatient management and surgical consultation. No known prior history of diverticulitis. He has never had previous colonoscopy. His father had colon cancer diagnosed initially when he was in his 50s and then recurred as stage IV several years later. He was discharged home on low residue diet and oral Augmentin. He did have some ongoing pain for a couple of days after discharge and this has now resolved. Patient does describe postprandial fecal urgency occasionally. Much of this depends on what he eats. He states that if he eats foods containing garlic he often has urgency. . Performing Provider:: Ruddy Downing MD Referring Provider:: . Sedation:: MAC sedation Procedure:: Patient history was obtained and appropriate physical examination was performed. Patient's medications and allergies were reviewed. Informed consent was obtained after explaining the benefits, alternatives, and risks of the procedure including, but not limited to, bleeding, perforation, missed lesions, and adverse reaction to anesthesia medications. Patient was transported to endoscopy procedure room. Patient was connected to monitoring devices. Throughout the procedure the patient's blood pressure, pulse, and oxygen saturations were monitored continuously. Patient identification and planned procedure were verified by the staff. Patient was positioned in lateral decubitus position. Digital anorectal exam was performed. Variable stiffness Olympus colonoscope was inserted and advanced under direct visualization to the cecum. Adequacy of the colonic p reparation was noted. The colonoscope was advanced a short distance into the terminal ileum. The colonoscope was then slowly withdrawn while carefully examining the color, texture, anatomy, and integrity of the mucosoa circumferentially. Within the rectum retroflexion was performed. Colonoscope was then withdrawn. Impression: Colonoscope was able to be advanced to the cecum without appreciable difficulty. Colonic preparation was good. Terminal ileum revealed some lymphoid appearing tissue. Due to his symptoms with change in bowel habits and some fecal urgency biopsy was obtained. Random right colon biopsies were obtained. Near the hepatic flexure there was a tiny diminutive polyp removed with biopsy forceps. Proximal transverse colon there was a tiny diminutive polyp removed with biopsy forceps. In the distal transverse colon there is a small diminutive polyp removed with biopsy forceps. Several random left colon biopsies were obtained due to his symptomatology. In the sigmoid colon there were findings of patchy erythema and induration consistent with likely resolving diverticulitis. Sigmoid biopsies were obtained. However, there was noted to be an irregular fleshy like lesion on seemingly and what appeared to be a large diverticulum in the sigmoid colon approximately 45 cm from the anal verge. It was difficult to to discern if this was granulation tissue versus neoplastic process. Several biopsies were obtained with cold biopsy forceps and sent as sigmoid colon lesion. The area was marked with a small amount of submucosally injected Zulma ink. . 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 Multiple biopsies obtained and area marked with Zulma ink * Findings consistent with resolving sigmoid colon diverticulitis with patchy erythema and induration, biopsies performed Recommendations:: Follow-up management pending pathology. If sigmoid lesion is neoplastic or adenomatous may need resection. Complications:: None immediately apparent Estimated blood obtained (mL): 2 Colonoscopy Component Colonoscopy Component Was a colonoscopy performed during today's procedure?: Yes Recommended follow up colonoscopy of at least 10 years?: No If no, follow up colonoscopy recommended in ___ years?: See above Reason for not recommending >/= 10 yr follow-up interval?: See above
[2023-12-19 12:32] VITALS: BP 115/74; PULSE 108; RESP 16; TEMP 37; O2SAT 93
[2023-12-19 12:42] VITALS: BP 109/80; PULSE 93; RESP 16; O2SAT 96
[2023-12-19 12:52] VITALS: BP 125/94; PULSE 80; RESP 18; O2SAT 97
[2023-12-19 13:02] VITALS: BP 128/83; PULSE 82; RESP 18; O2SAT 97
== END 2023-12-19 13:02 | disposition home or self-care (01) ==
PROVIDERS: Visit Provider Surgery
PROC: 0DJD8ZZ Inspection of Lower Intestinal Tract, Via Natural or Artificial Opening Endoscopic (ICD-10-PCS; CPT 45380; principal; 2023-12-19 12:30)
DX: R10.9 Unspecified abdominal pain (principal); K57.32 Diverticulitis of large intestine without perforation or abscess without bleeding; Z80.0 Family history of malignant neoplasm of digestive organs; R59.9 Enlarged lymph nodes, unspecified; K63.5 Polyp of colon; K63.9 Disease of intestine, unspecified
CPT/HCPCS: 45380; 45381; J2704; J7120